=== PATIENT | male | born 1950 | race Caucasian/White ===

== ENCOUNTER 2024-06-13 16:54 | Inpatient (IN) | payer OTHER ==
[2024-06-13 17:48] LABS: Absolute Eosinophils 0.2 K/uL (0-0.5); Absolute Lymphocytes (CBC) 1.6 K/uL (0.7-4.9); Absolute Monocytes 0.7 K/uL (0.1-1.3); Absolute Neutrophil 5.6 K/uL (1.8-8.0); Basophils % 0.5 % (0-1.3); Eosinophils % 2.2 % (0-4.4); Hematocrit 36.9 % (39.6-49.0); Hemoglobin 12.6 g/dL (13.6-17.9); Lymphocytes % 19.7 % (15.3-44.8); MCH 30.2 pg (27.0-35.0); MCHC 34.2 g/dL (32.0-36.0); MCV 88.3 fL (80-100); MPV 6.9 fL (7.6-11.3); Monocytes % 8.4 % (3.3-12.3); Neutrophils % 69.2 % (41.7-73.7); Platelets 205 thou/uL (152-406); RBC Red Blood Cell Count 4.18 M/uL (4.33-5.43); Red Cell Distribution Width 13.7 % (12.1-15.2)
[2024-06-13 18:03] LABS: Influenza A Ag Negative; Influenza B Ag Negative; SARS-CoV-2 Antigen Rapid Res Negative (Negative)
[2024-06-13 18:07] LABS: Magnesium 2.1 mg/dL (1.6-2.4); Troponin High Sensitivity 11.8 pg/mL (<58.9)
--- NOTE | 2024-06-13 18:24 | RAD REPORT ---
EXAMINATION: ONE VIEW CHEST XR CLINICAL INDICATION: DYSPNEA TECHNIQUE: Frontal chest projection is submitted. Examination is limited by patient positioning and t echnique. COMPARISON: No prior exam. FINDINGS: Mild bilateral interstitial opacities likely pulmonary edema. The heart is mildly to moderately enlar ged. No displaced fractures identified. IMPRESSION: Mild CHF.
--- NOTE | 2024-06-13 19:22 | ER ---
Nurse's Notes [facility] Name: Zohaib Tirado Age: 73 yrs Sex: Male : 1950 Arrival Date: 06/13/2024 Time: 16:54 Bed 5 Private MD: Diagnosis: Acute pulmonary edema;Dyspnea Presentation: 06/13 17:22 Chief complaint: Patient states: SOB since last night, worse when he lies back. iw Coronavirus screen: Client presents with at least one sign or symptom that may indicate coronavirus-19. Ebola Screen: No symptoms or risks identified at this time. Initial Sepsis Screen: Does the patient meet any 2 criteria? Does the patient have a suspected source of infection? No. Patient's initial sepsis screen is negative. Risk Assessment: Do you want to hurt yourself or someone else? Patient reports no desire to harm self or others. Onset of symptoms was June 13, 2024. 17:22 Method Of Arrival: Ambulatory iw 17:22 Acuity: WILDER 3 iw Historical: - Allergies: 17:23 No Known Allergies; iw - PMHx: 17:23 Hypertensive disorder; Atrial fibrillation; colon cancer; iw - PSHx: 17:23 colon resection; Cholecystectomy; iw - Infectious Disease History:: Denies. - Social history:: Smoking status: Patient reports the use of cigarette tobacco products. Screenin:00 [facility] ED Fall Risk Assessment (Adult) History of falling in the last 3 months, jb4 including since admission No falls in past 3 months (0 pts) Confusion or Disorientation No (0 pts) Intoxicated or Sedated No (0 pts) Impaired Gait No (0 pts) Mobility Assist Device Used No (0 pt) Altered Elimination No (0 pt) Score/Fall Risk Level 0 - 2 = Low Risk Oriented to surroundings, Maintained a safe environment. Abuse screen: Denies threats or abuse. Nutritional screening: No deficits noted. Tuberculosis screening: No symptoms or risk factors identified. Assessment: 17:35 General: Appears in no apparent distress. comfortable, Behavior is calm, cooperative, jb4 appropriate for age. Pain: Denies pain. Neuro: Level of Consciousness is awake, alert, obeys commands, Oriented to person, place, time, situation. Cardiovascular: Patient's skin is warm and dry. Rhythm is irregular. Respiratory: Reports shortness of breath on exertion cough that is non-productive, persistent Airway is patent Respiratory effort is even, unlabored, Respiratory pattern is regular, symmetrical. Derm: Skin is intact, Skin is pink, warm \T\ dry. Musculoskeletal: Circulation, motion, and sensation intact. Range of motion: intact in all extremities. 18:09 Reassessment: Patient appears in no apparent distress at this time. Patient and/or jb4 family updated on plan of care and expected duration. Pain level reassessed. Patient is alert, oriented x 3, equal unlabored respirations, skin warm/dry/pink. 19:39 Reassessment: Patient appears in no apparent distress at this time. Patient and/or jb4 family updated on plan of care and expected duration. Pain level reassessed. Patient is alert, oriented x 3, equal unlabored respirations, skin warm/dry/pink. 20:30 Reassessment: Patient appears in no apparent distress at this time. Patient and/or jb4 family updated on plan of care and expected duration. Pain level reassessed. Patient is alert, oriented x 3, equal unlabored respirations, skin warm/dry/pink. 21:36 Reassessment: Patient appears in no apparent distress at this time. Patient and/or jb4 family updated on plan of care and expected duration. Pain level reassessed. Patient is alert, oriented x 3, equal unlabored respirations, skin warm/dry/pink. Vital Signs: 17:22 BP 156 / 110; Pulse 67; Resp 20; Temp 97.5; Pulse Ox 96% ; Weight 86.18 kg; Height 6 iw ft. 0 in. ; Pain 0/10; 18:26 BP 164 / 108; Pulse 98; Resp 20; Pulse Ox 96% on R/A; jb4 19:39 BP 171 / 114; Pulse 85; Resp 18; Pulse Ox 95% on R/A; jb4 20:04 BP 169 / 105; Pulse 91; Resp 22; Pulse Ox 92% on R/A; jb4 21:36 BP 162 / 108; Pulse 95; Resp 20; Pulse Ox 97% on R/A; jb4 17:22 Body Mass Index 25.77 (86.18 kg, 182.88 cm) iw 17:22 Pain Scale: Adult iw ED Course: 16:57 Patient arrived in ED. im 16:59 Mary Hsu FNP-C is PHCP. kb 16:59 Nicko Campbell MD is Attending Physician. kb 17:23 Triage completed. iw 17:24 Arm band placed on. iw 17:46 Initial lab(s) drawn, by me, sent to lab. Inserted saline lock: 20 gauge in right kb4 antecubital area, using aseptic technique. Blood collected. Flushed with 10 mL NS. 18:09 Graeme Rene, RN is Primary Nurse. jb4 18:19 XRAY Chest (1 view) In Process Unspecified. EDMS 19:21 Prince Harrison MD is Hospitalizing Provider. kb 21:30 No provider procedures requiring assistance completed. Patient admitted, IV remains in jb4 place. Administered Medications: 20:03 Drug: Furosemide IVP 40 mg IVP once; give over 2 minutes Route: IVP; Site: right jb4 antecubital; 21:36 Drug: carvedilol PO 25 mg PO once; administer with food Route: PO; jb4 21:50 Follow up: Response: Medication Administered at Departure jb4 Outcome: 19:21 Decision to Hospitalize by Provider. kb 21:30 Admitted to Tele accompanied by tech, via wheelchair, room 409, with chart, jb4 21:30 Condition: stable 21:30 Discharge instructions given to patient, family, Instructed on the need for admit, Demonstrated understanding of instructions, 21:44 Patient left the ED. vc1 Signatures: Dispatcher [employer] EDMS Mary Hsu, [employer] ANALYST-CkAntonia Avalos RN RN iw Graeme Rene RN RN jb4 Rosio Bolden RN RN vc1 Cindy Yu Kayla kb4 Corrections: (The following items were deleted from the chart) 17:24 17:23 PMHx: None; iw iw 17:25 17:22 Pulse 67bpm; Resp 20bpm; Pulse Ox 96%; Temp 97.5F; 86.18 kg; Height 6 ft. 0 in.; iw BMI: 25.7; Pain 0/10, Adult; iw 21:50 17:35 Cardiovascular: Patient's skin is warm and dry. jb4 jb4
--- NOTE | 2024-06-13 19:22 | EDPHYS ---
Physician Documentation [facility] Name: Zohaib Tirado Age: 73 yrs Sex: Male : 1950 Arrival Date: 06/13/2024 Time: 16:54 Bed 5 Private MD: ED Physician Nicko Campbell HPI: 06/13 17:16 This 73 yrs old Male presents to ER via Unassigned with complaints of Shortness Of kb Breath, Cough, Weakness. 17:16 Pt is a 73 year old male who presents for shortness of breath that started at 0400 this morning. States if he is standing up he can breath better. Sitting and laying make shortness of breath worse. Reports cough and congestion. States he has had issues over the last few weeks, but today is worse. states pt was recently seen by Pat because they think the shortness of breath is due to a heart issue rather than a lung issue. Denies chest pain. . Historical: - Allergies: 17:23 No Known Allergies; iw - PMHx: 17:23 Hypertensive disorder; Atrial fibrillation; colon cancer; iw - PSHx: 17:23 colon resection; Cholecystectomy; iw - Infectious Disease History:: Denies. - Social history:: Smoking status: Patient reports the use of cigarette tobacco products. ROS: 17:16 Constitutional: As per HPI kb Exam: 17:19 Constitutional: This is a well developed, well nourished patient who is awake, alert, kb and in no acute distress. Head/Face: Normocephalic, atraumatic. ENT: Moist Mucous membranes Cardiovascular: Regular rate Respiratory: Respirations even and unlabored. No increased work of breathing. Talking in full sentences Skin: Warm, dry with normal turgor. Normal color. MS/ Extremity: Pulses equal, no cyanosis. Neurovascular intact. Full, normal range of motion. Neuro: Awake and alert, GCS 15, oriented to person, place, time, and situation. 17:37 ECG was reviewed by the Attending Physician. Vital Signs: 17:22 BP 156 / 110; Pulse 67; Resp 20; Temp 97.5; Pulse Ox 96% ; Weight 86.18 kg; Height 6 iw ft. 0 in. ; Pain 0/10; 18:26 BP 164 / 108; Pulse 98; Resp 20; Pulse Ox 96% on R/A; jb4 19:39 BP 171 / 114; Pulse 85; Resp 18; Pulse Ox 95% on R/A; jb4 20:04 BP 169 / 105; Pulse 91; Resp 22; Pulse Ox 92% on R/A; jb4 21:36 BP 162 / 108; Pulse 95; Resp 20; Pulse Ox 97% on R/A; jb4 17:22 Body Mass Index 25.77 (86.18 kg, 182.88 cm) iw 17:22 Pain Scale: Adult iw MDM: 16:59 Medical Screening Exam initiated kb 17:20 Data reviewed: vital signs, nurses notes. Historians other than the Patient: abbie Spouse/Significant Other: . 19:00 Differential diagnosis: CHF exacerbation, pneumonia, pulmonary edema. kb 19:20 Consideration of Admission/Observation Patient was admitted/placed on observation. kb Escalation of care including admission/observation considered. Management of patient was discussed with the following: Hospitalist: Dr Wall accepts pt for admission. Counseling: I had a detailed discussion with the patient and/or guardian regarding the historical points, exam findings, and any diagnostic results supporting the discharge/admit diagnosis, lab results, radiology results, the need for further work-up and treatment in the hospital. ED course: Discussed admission vs outpatient treatment with pt and . They are not comfortable going home due to the shortness of breath so prefer to stay in the hospital. 06/13 17:14 Order name: COVID-19 Ag + Flu A+B Ag; Complete Time: 18:04 kb 06/13 17:18 Order name: Basic Metabolic Panel; Complete Time: 18:11 kb 06/13 17:18 Order name: CBC with Diff; Complete Time: 17:54 kb 06/13 17:18 Order name: Magnesium; Complete Time: 18:11 kb 06/13 17:18 Order name: NT PRO-BNP; Complete Time: 18:11 kb 06/13 17:18 Order name: Troponin HS; Complete Time: 18:11 kb 06/13 20:41 Order name: NT PRO-BNP EDMS 06/13 20:41 Order name: NT PRO-BNP EDMS 06/13 20:41 Order name: Troponin High Sensitivity EDMS 06/13 17:18 Order name: XRAY Chest (1 view); Complete Time: 18:30 kb 06/13 20:41 Order name: Echo with Doppler EDMS 06/13 17:18 Order name: Cardiac monitoring; Complete Time: 17:59 kb 06/13 17:18 Order name: EKG - Nurse/Tech; Complete Time: 17:59 kb 06/13 17:18 Order name: IV Saline Lock; Complete Time: 17:46 kb 06/13 17:18 Order name: Labs collected and sent; Complete Time: 17:58 kb 06/13 17:18 Order name: O2 Per Protocol; Complete Time: 17:46 kb 06/13 17:18 Order name: O2 Sat Monitoring; Complete Time: 17:46 kb EC:37 Rate is 95 beats/min. Rhythm is irregularly irregular. QRS [place] is Normal. QRS interval kb is normal at 106 msec. QT interval is normal at 427 msec. Administered Medications: 20:03 Drug: Furosemide IVP 40 mg IVP once; give over 2 minutes Route: IVP; Site: right jb4 antecubital; 21:36 Drug: carvedilol PO 25 mg PO once; administer with food Route: PO; [facility] 21:50 Follow up: Response: Medication Administered at Departure [facility] Disposition: 19:19 Co-signature as Attending Physician, Nicko Campbell MD I reviewed the patient's care rt provided by the Advanced Practice Provider and agree with the diagnosis and treatment plan. Disposition Summary: 06/13/24 19:21 Hospitalization Ordered Notes: Hospitalization Status: Observation Provider: Prince abbei Harrison Location: Telemetry/MedSurg (observation) kb Condition: Stable kb Problem: new kb Symptoms: are unchanged kb Bed/Room Type: Standard Room Assignment: [facility](06/13/24 20:52) [facility] Diagnosis - Acute pulmonary edema kb - Dyspnea kb Forms: - Medication Reconciliation Form kb - SBAR form kb - Leadership Thank You Letter kb Signatures: Dispatcher [employer] [facility] Mary Hsu FNP-C FNP-Antonia Avila RN RN iw Bryson, James, RN RN [facility] Nicko Campbell MD MD Ange Yan [facility] Corrections: (The following items were deleted from the chart) 17:19 17:19 Chest Single View+RAD.RAD.BRZ ordered. [facility] EDWV 17:21 17:16 Pt is a 73 year old male who presents for shortness of breath that started at kb 0400 this morning. States if he is standing up he can breath better. Sitting and laying make shortness of breath worse. Reports cough and congestion. States he has had issues over the last few weeks, but today is worse. . kb 17:24 17:23 PMHx: None; iw iw 17:26 17:16 Pt is a 73 year old male who presents for shortness of breath that started at kb 0400 this morning. States if he is standing up he can breath better. Sitting and laying make shortness of breath worse. Reports cough and congestion. States he has had issues over the last few weeks, but today is worse. states pt was recently seen by Pat because they think the shortness of breath is due to a heart issue rather than a lung issue. kb 20:52 19:21 kb kmf
[2024-06-13] MEDS ORDERED: FUROSEMIDE 40 MG/4 ML VIAL ONE (20:00)
[2024-06-13] MEDS: FUROSEMIDE 40 MG/4 ML VIAL IV SCH (20:36)
[2024-06-13] MEDS ORDERED: ALBUTEROL 2.5 MG/3 ML NEB SOL NEB PRN (20:36)
[2024-06-13] MEDS ORDERED: IPRATROPIUM BROM 0.5MG/2.5ML NEB PRN (20:36)
[2024-06-13] MEDS ORDERED: ONDANSETRON 4 MG/2 ML VIAL IV PRN (20:36)
--- NOTE | 2024-06-13 20:44 | P.HP ---
Certification for Inpatient Patient admitted to: Inpatient With expected LOS: >2 Midnights Practitioner: I am a practitioner with admitting privileges, knowledge of patient current condition, hospital course, and medical plan of care. Services: Services provided to patient in accordance with Admission requirements found in Title 42 Section 412.3 of the Code of Federal Regulations Patient History Date of Service: 06/13/24 Reason for admission: Shortness of breath History of Present Illness: Patient is a 73-year-old male with a past medical history of atrial fibrillation. He is being admitted for new onset CHF. Patient has been experiencing dyspnea on exertion. He has evidence of pulmonary edema. Patient is known to cardiology and they are in the process of working him up extensively. He is reporting orthopnea, dyspnea on exertion and even with sitting. He is known to Dr. Stewart. He has multiple test scheduled for this month to determine etiology of his shortness of breath. Physical Examination - Physical Exam General: Acute distress HEENT: Atraumatic, Normocephalic Respiratory: Diminished Cardiovascular: No edema, Normal pulses, Normal S1 S2, Irregular heart rate/rhythm Neurological: Normal speech - Studies Laboratory Data (last 24 hrs) 06/13/24 06/13/24 17:42 17:42 WBC 8.10 Hgb 12.6 L Hct 36.9 L Plt Count 205 Sodium 129 L Potassium 4.0 BUN 18 Creatinine 1.26 Glucose 126 H Magnesium 2.1 Assessment and Plan - Problems (Diagnosis) (1) Decompensated heart failure Current Visit: Yes Status: Acute (2) Atrial fibrillation Current Visit: Yes Status: Acute - Plan Assessment This is a 73-year-old male who is being admitted for new onset CHF after he presented with shortness of breath, dyspnea on exertion. Patient has a BNP more than 2700. He is on room air. cardiac monitor technician reveals evidence of atrial fibrillation. New onset CHF Pulmonary edema Atrial fibrillation Plan: Will admit inpatient with telemetry Continue scheduled IV diuresis 2D echo ordered Monitor ins and outs Will also benefit from cardiology consult Resume rest of home medications upon reconciliation - Advance Directives Does patient have a Living Will: No Does patient have a Durable POA for Healthcare: No
[2024-06-13] MEDS: carvediloL 25 MG TAB ONE (21:24)
[2024-06-13 22:03] VITALS: BMI 24.4
[2024-06-14 06:41] LABS: Troponin High Sensitivity 15.2 pg/mL (<58.9)
[2024-06-14] MEDS: ENOXAPARIN 40 MG/0.4 ML SQ SCH (08:51)
--- NOTE | 2024-06-14 10:53 | P.CNS ---
Date of Consult: 06/14/24 Chief Complaint: Shortness of breath History of Present Illness: Patient with PMH of atrial fibrillation, presented with worsening SOB and WANG, denies chest pain, no palpitations, no syncope. Allergies No Known Allergies Allergy (Unverified 06/13/24 20:51) Home medications list reviewed: Yes Home Medications: Amiodarone HCl [Cordarone*] 1 tab PO BID 06/14/24 Amlodipine Besylate [Norvasc] 1 tab PO DAILY 06/14/24 Apixaban [Eliquis] 1 tab PO BID 06/14/24 Carvedilol [Coreg] 1 tab PO BID 06/14/24 Ezetimibe [Zetia*] 1 tab PO DAILY 06/14/24 Pravastatin [Pravachol*] 1 tab PO DAILY 06/14/24 - Past Medical/Surgical History Diabetic: No -: HTN -: afib -: colon cancer -: colon resection - Social History Place of Residence: Home Review of Systems 10-point ROS is otherwise unremarkable Physical Examination Temp Pulse Resp BP Pulse Ox 98.0 F 79 17 156/77 H 94 06/14/24 08:00 06/14/24 08:51 06/14/24 04:00 06/14/24 08:51 06/14/24 08:00 General: Alert, In no apparent distress HEENT: Atraumatic, PERRLA, Mucous membr. moist/pink, EOMI, Sclerae nonicteric Neck: Supple, 2+ carotid pulse no bruit, No LAD, Without JVD or thyroid abnormality Respiratory: Clear to auscultation bilaterally, Normal air movement Cardiovascular: Regular rate/rhythm, Normal S1 S2 Gastrointestinal: Normal bowel sounds, No tenderness Musculoskeletal: No tenderness Integumentary: No rashes Neurological: Normal gait, Normal speech, Normal tone, Normal affect Lymphatics: No axilla or inguinal lymphadenopathy Laboratory Data (last 24 hrs) 06/13/24 06/13/24 17:42 17:42 WBC 8.10 Hgb 12.6 L Hct 36.9 L Plt Count 205 Sodium 129 L Potassium 4.0 BUN 18 Creatinine 1.26 Glucose 126 H Magnesium 2.1 - Problems (1) Atrial fibrillation Current Visit: Yes Status: Acute Plan: continue amiodarone 200 mg po BID Continue Eliquis 5 mg po BID (2) Decompensated heart failure Current Visit: Yes Status: Acute Plan: re start patient on Coreg 12.5 mg po BID Add Entresto 24 mg po BID Add Aldactone 25 mg daily continue lasix 40 mg IV BID Monitor input and output and electrolytes. Echo pending
--- NOTE | 2024-06-14 12:05 | EKG ---
Test Date: 2024-06-13 Test Time: 17:30:39 Prepress Technician: LASHAWN MEASUREMENT RESULTS: Intervals: Rate: 95 MI: QRSD: 106 QT: 340 QTc: 427 [place]: P: MI: QRS: 42 T: 107 INTERPRETIVE STATEMENTS: Atrial fibrillation Abnormal ECG No previous ECG available for comparison Electronically Signed On 06-14-24 12:02:51 OCCUPATIONAL PSYCHOLOGIST by Avel Jenkins
--- NOTE | 2024-06-14 12:55 | ECHO ---
HEIGHT: 6 ft 0 in WEIGHT: 190 lb 0 oz DATE OF STUDY: 06/14/[address]: Prince Curtis Harrison MD 2-DIMENSIONAL: YES M.MODE: YES DOPPLER: YES COLOR FLOW: YES TDS: PORTABLE: YES DEFINITY: BUBBLE STUDY: DIAGNOSIS: DECOMPENSATED CONGESTIVE HEART FAILURE CARDIAC HISTORY: CATHERIZATION: YES SURGERY: NO PROSTHETIC VALVE: NO PACEMAKER: NO MEASUREMENTS (cm) DIASTOLIC (NORMALS) SYSTOLIC (NORMALS) IVSd 1.3 (0.6-1.2) LA Diam 2.6 (1.9-4.0) LVEF 40-45% LVIDd 4.4 (3.5-5.7) LVIDs 3.9 (2.0-3.5) %FS LVPWd 1.3 (0.6-1.2) Ao Diam 3.5 (2.0-3.7) 2 DIMENSIONAL ASSESSMENT: RIGHT ATRIUM: NORMAL LEFT ATRIUM: MODERATELY DILATED RIGHT VENTRICLE: NORMAL LEFT VENTRICLE: NORMAL TRICUSPID VALVE: TRACE TRICUSPID REGURGITATION MITRAL VALVE: MILD MITRAL REGURGITATION PULMONIC VALVE: NORMAL AORTIC VALVE: CALCIFIED, NO AORTIC STENOSIS PERICARDIAL EFFUSION: NONE AORTIC ROOT: NORMAL LEFT VENTRICULAR WALL MOTION: MILD GLOBAL HYPOKINESIS DOPPLER/COLOR FLOW: DIASTOLIC DYSFUNCTION COMMENTS: 1. MILDLY REDUCED LEFT VENTRICULAR SYSTOLIC FUNCTION, EJECTION FRACTION 40-45%, MILD GLOBAL HYPOKINESIS 2. DIASTOLIC DYSFUNCTION 3. NORMAL FILLING PRESSURE (RIGHT ATRIAL PRESSURE 0-5 mmHg) TECHNOLOGIST: SERGEI ZAVALA
--- NOTE | 2024-06-14 14:05 | RAD REPORT ---
EXAMINATION: US CAROTID DUPLEX CLINICAL INDICATION: , 73 years old. Syncope. TECHNIQUE: Real-time grayscale, color flow and spectral Doppler sonographic images were obtained of t extracranial carotid system using a linear transducer. [id number]. COMPARISON: No prior exam. FINDINGS: RIGHT: Common carotid artery: 81 cm/s Internal carotid artery: 113 cm/s External carotid artery: 109 cm/s Right ICA/CCA ratio: 1.4 Plaque Moderate Calcified and noncalcified Vertebral artery Antegrade LEFT: Common carotid artery: 85 cm/s Internal carotid artery: 118 cm/s External carotid artery: 135 cm/s lEFT ICA/CCA ratio: 1.4 Plaque Moderate Calcified and noncalcified Vertebral artery Antegrade IMPRESSION: No hemodynamically significant stenosis (greater than 50%) within the extracranial internal carotid a [facility].
[2024-06-15] MEDS: carvediloL 25 MG TAB PO SCH ×2 (09:25→16:12)
[2024-06-15] MEDS: AMIODARONE HCL 200 MG TAB PO SCH (09:25)
[2024-06-15] MEDS: APIXABAN 5 MG TABLET PO SCH (09:26)
[2024-06-15] MEDS ORDERED: LIDOCAINE 1% 20 ML MDV ONE (09:30)
[2024-06-15] MEDS ORDERED: MIDAZOLAM HCL 2 MG/2 ML INJ ONE (09:30)
[2024-06-15] MEDS ORDERED: ATROPINE SULF 1 MG/10 ML SYR IV ONE (09:30)
[2024-06-15] MEDS ORDERED: NITROGLYCERIN/D5W 50 MG/250 ML BTL IV ONE (09:30)
[2024-06-15] MEDS ORDERED: HEPA 1000U/500MLS 2,000 UNIT/1,000 ML BAG IV ONE (09:30)
[2024-06-15] MEDS ORDERED: HEPARIN 10,000 UNIT/10 ML VIAL IV ONE (09:30)
[2024-06-15] MEDS ORDERED: TICAGRELOR 90 MG TABLET PO ONE (09:31)
[2024-06-15] MEDS ORDERED: ASPIRIN 325 MG TAB ONE (09:31)
[2024-06-15] MEDS ORDERED: CLOPIDOGREL 75 MG TABLET ONE (09:31)
[2024-06-15] MEDS ORDERED: HEPARIN 5000 UNIT/ML 1 ML VIAL ONE (09:31)
[2024-06-15] MEDS ORDERED: NALOXONE 0.4 MG/ML VIAL ONE (09:32)
[2024-06-15] MEDS ORDERED: FLUMAZENIL 0.1 MG/ML (5 mL VIAL) IV ONE (09:32)
[2024-06-15] MEDS ORDERED: FENTANYL CITR 100 MCG/2 ML ONE (09:32)
[2024-06-15] MEDS: SACUBITRIL/VALSARTAN 24/26 MG TAB PO SCH (09:56)
[2024-06-15] MEDS ORDERED: NA CHLORIDE 0.9% 500 ML ONE (10:04)
--- NOTE | 2024-06-15 11:18 | P.PN ---
Subjective Date of Service: 06/15/24 Chief Complaint: Shortness of breath Subjective: No new changes, No C/O voiced, Tolerating diet, Ambulating, Improving Review of Systems 10-point ROS is otherwise unremarkable Physical Examination - Vital Signs Temperature: 97.6 F Blood Pressure: 153/90 Pulse: 84 Respirations: 18 Pulse Ox (%): 94 - Physical Exam General: Alert, In no apparent distress HEENT: Atraumatic, PERRLA, EOMI Neck: Supple, JVD not distended Respiratory: Clear to auscultation bilaterally, Normal air movement Cardiovascular: Irregular heart rate/rhythm Gastrointestinal: Normal bowel sounds, No tenderness Musculoskeletal: No tenderness Integumentary: No rashes Neurological: Normal speech, Normal tone, Normal affect Lymphatics: No axilla or inguinal lymphadenopathy - Studies Medications List Reviewed: Yes Assessment And Plan - Current Problems (Diagnosis) (1) Atrial fibrillation Current Visit: Yes Status: Acute Plan: continue amiodarone 200 mg po BID Continue Eliquis 5 mg po BID Patient is rate controlled, ADOLFO Probe is down so DCCV is not possible, will continue medical treatment at this time. (2) Decompensated heart failure Current Visit: Yes Status: Acute Plan: re start patient on Coreg 12.5 mg po BID Add Entresto 24 mg po BID Add Aldactone 25 mg daily continue lasix 40 mg IV BID Monitor input and output and electrolytes. Echo shows mild reduced LV systolic function, DD. (3) CAD (coronary artery disease) Current Visit: Yes Status: Acute Plan: Patient coronary angiogram done today shows significant multivessel complex CAD ASA 81 mg daily Lipitor 40 mg daily add Jardiance 10 mg daily on discharge outpatient follow up with CT surgery and cardiology.
[2024-06-15 11:39] LABS: Absolute Eosinophils 0.2 K/uL (0-0.5); Absolute Lymphocytes (CBC) 1.3 K/uL (0.7-4.9); Absolute Monocytes 0.6 K/uL (0.1-1.3); Absolute Neutrophil 4.4 K/uL (1.8-8.0); Basophils % 0.3 % (0-1.3); Eosinophils % 2.5 % (0-4.4); Hematocrit 40.5 % (39.6-49.0); Hemoglobin 13.9 g/dL (13.6-17.9); Lymphocytes % 19.7 % (15.3-44.8); MCHC 34.3 g/dL (32.0-36.0); MCV 87.4 fL (80-100); MPV 7.2 fL (7.6-11.3); Monocytes % 9.6 % (3.3-12.3); Neutrophils % 67.9 % (41.7-73.7); Platelets 254 thou/uL (152-406); RBC Red Blood Cell Count 4.63 M/uL (4.33-5.43); Red Cell Distribution Width 14.1 % (12.1-15.2)
[2024-06-15 11:45] LABS: Albumin 3.6 g/dL (3.4-5.0); Albumin/Globulin Ratio 0.9 (1.1-1.8); Anion Gap 11.4 mEq/L (5.0-15.0); Bilirubin Total 0.8 mg/dL (0.2-1.0); Globulin 4.1 g/dL (2.3-3.5); Magnesium 2.1 mg/dL (1.6-2.4); Potassium 3.4 mEq/L (3.5-5.1); Protein, Total 7.7 g/dL (6.4-8.2)
[2024-06-15 12:43] VITALS: O2SAT 98
--- NOTE | 2024-06-15 13:40 | OP ---
Date of Procedure: 06/15/2024 Surgeon: Avel Jenkins Procedure Performed: Selective coronary angiogram. Indication For Procedure: Acute systolic heart failure. Complications: None. Estimated Blood Loss: Less than 50 cc. Access: Right radial, closed by TR band. Sedation Time: 20 minutes with 1 of Versed and 50 of fentanyl. Description Of Procedure: After risks, and benefits, and alternatives were explained to patient, pat ient agreed to proceed with procedure and signed informed consent. The patient was brought back to [facility] pit laborer, prepped and draped in sterile fashion. Time-out was performed. Sedation was administer ed. Next, right radial access was obtained using an ultrasound-guided micropuncture technique. Tige r 4.0 catheter was advanced over a J-wire to the aortic root. Selective angiogram was done using the same catheter. At the end of procedure, catheter was removed over a J-wire. Sheath was removed. T R band was applied. Hemostasis was achieved, and the patient was moved back to Recovery in stable co ndition. Findings: 1. Left main normal. 2. LAD; heavy calcified, tortuous arteries with a proximal diffuse 70% to 80% disease, before it take s a 90 degree turn and mid mild luminal irregularities and then mid to distal, there is an 80% focal lesion, but that is very tortuous with diffuse disease artery distally. 3. Left circ; proximal mild luminal irregularities, gives a large OM1 right after it takes a 90 degre e bend. There is an 80% to 90% disease from the left circ into the OM1 before the mid OM1 stent that is patent. Then in the distal circ, distal OM got 60% disease. 4. RCA; proximal 100% occluded, BRANCH SERVICE LEADER, with left to right collaterals from the circ into the RPDA and R PLB. 5. Left subclavian artery/ANDRES is patent. Assessment And Plan: Significant proximal LAD disease that is probably fixable by high-risk PCI. Al so significant left circumflex into OM disease that is also probably fixable by PCI. RCA [employer]CH SERVICE LEADER that is with [id number] collaterals with mid to distal LAD disease that is need to be left for medical ma nagement due to severe tortuosity and severe diffuse artery disease. The plan is to consult CT Surgery as an outpatient for a bypass. If bypass is not an option, then co nsider high-risk PCI of the proximal LAD and left circ into OM1. Meanwhile, continue medical treatme nt. ORLIN/DELMIS Voice ID: [id number] Report ID: [id number]
[2024-06-15] MEDS ORDERED: ALBUTEROL 2.5 MG/3 ML NEB SOL NEB PRN (15:50)
[2024-06-15] MEDS: SODIUM CHLORIDE 1 GM TAB PO SCH (16:12)
[2024-06-15 16:13] VITALS: BP 146/89
[2024-06-15 16:29] VITALS: TEMP 97.9
[2024-06-15] MEDS ORDERED: SACUBITRIL/VALSARTAN 24/26 MG TAB PO SCH (21:00)
[2024-06-15] MEDS ORDERED: SPIRONOLACTONE 25 MG TABLET PO SCH (21:00)
[2024-06-15] MEDS ORDERED: ATORVASTATIN 10 MG TAB PO SCH (21:00)
== END 2024-06-15 18:42 | disposition home or self-care (01) | DRG 286 ==
LOC: ER 16:54 → 4TH 20:36
PROVIDERS: ADMIT Internal Medicine; ATTEND Hospitalist
PROC: 4A023N7 Measurement of Cardiac Sampling and Pressure, Left Heart, Percutaneous Approach (ICD-10-PCS; principal; 2024-06-15)
PROC: B2111ZZ Fluoroscopy of Multiple Coronary Arteries using Low Osmolar Contrast (ICD-10-PCS; 2024-06-15)
DX: I11.0 Hypertensive heart disease with heart failure (principal); I50.21 Acute systolic (congestive) heart failure; I48.91 Unspecified atrial fibrillation; I25.10 Atherosclerotic heart disease of native coronary artery without angina pectoris; F17.210 Nicotine dependence, cigarettes, uncomplicated; Z79.01 Long term (current) use of anticoagulants; Z90.49 Acquired absence of other specified parts of digestive tract; Z79.899 Other long term (current) drug therapy; Z85.038 Personal history of other malignant neoplasm of large intestine
CPT/HCPCS: 36415; 71045; 76937; 80048; 80053; 82947; 83735; 83880; 84484; 85025; 87428; 93005; 93306; 93454; 93880; 96374; 97161; 99152; 99153; 99285; C1893; J0461; J1644; J1650; J1940; J2003; J2250; J2310; J3010; J7040; Q9966

== ENCOUNTER 2024-08-11 11:32 | Inpatient (IN) | payer OTHER ==
[2024-08-11] MEDS ORDERED: ONDANSETRON 4 MG/2 ML VIAL ONE (12:36)
[2024-08-11] MEDS ORDERED: NA CHLORIDE 0.9% 1,000 ML ONE ×2 (12:37→16:57)
--- NOTE | 2024-08-11 13:05 | RAD REPORT ---
EXAMINATION: ONE VIEW CHEST XR CLINICAL INDICATION: COUGH TECHNIQUE: Frontal chest projection is submitted. Examination is limited by patient positioning and t echnique. COMPARISON: 06/13/2024 FINDINGS: Mild bilateral pulmonary edema is suspected. Small left pleural effusion. The heart is mildly to mode rately enlarged. Sternotomy wires present. IMPRESSION: Mild CHF versus volume overload pattern is suspected. Small left pleural effusion.
[2024-08-11 13:47] LABS: Absolute Eosinophils 0.1 K/uL (0-0.5); Absolute Lymphocytes (CBC) 1.3 K/uL (0.7-4.9); Absolute Monocytes 0.5 K/uL (0.1-1.3); Basophils % 0.4 % (0-1.3); Hematocrit 36.7 % (39.6-49.0); Hemoglobin 12.7 g/dL (13.6-17.9); Lymphocytes % 16.7 % (15.3-44.8); MCH 30.1 pg (27.0-35.0); MCHC 34.7 g/dL (32.0-36.0); MCV 86.8 fL (80-100); MPV 6.1 fL (7.6-11.3); Monocytes % 6.4 % (3.3-12.3); Neutrophils % 75.5 % (41.7-73.7); Nucleated Red Blood Cells % 0.1 % (0-0); Platelets 304 thou/uL (152-406); RBC Red Blood Cell Count 4.23 M/uL (4.33-5.43); Red Cell Distribution Width 16.5 % (12.1-15.2)
[2024-08-11 13:52] LABS: PT Prothrombin Time 13.5 SECONDS (10-13.0); Protime INR 1.19
[2024-08-11 14:11] LABS: Influenza A Ag Negative; Influenza B Ag Negative; SARS-CoV-2 Antigen Rapid Res Negative (Negative)
[2024-08-11 14:48] LABS: Albumin 3.8 g/dL (3.4-5.0); Albumin/Globulin Ratio 0.7 (1.1-1.8); Anion Gap 13.9 mEq/L (5.0-15.0); Bilirubin Direct 0.3 mg/dL (0-0.2); Bilirubin Indirect, Calculated 0.5 mg/dL (0.2-0.8); Bilirubin Total 0.8 mg/dL (0.2-1.0); Globulin 5.1 g/dL (2.3-3.5); Potassium 3.9 mEq/L (3.5-5.1); Protein, Total 8.9 g/dL (6.4-8.2); Troponin High Sensitivity 17.6 pg/mL (<58.9)
--- NOTE | 2024-08-11 16:46 | EDPHYS ---
Physician Documentation [facility] Name: Zohaib Tirado Age: 73 yrs Sex: Male : 1950 Arrival Date: 08/11/2024 Time: 11:32 Bed 4 Private MD: JEYSON Physician Edgar Nguyen HPI: 08/11 16:37 This 73 yrs old Male presents to ER via Ambulatory with complaints of tess Breathing Difficulty, Vomiting. 16:37 The patient has shortness of breath at rest. Onset: The symptoms/episode began/occurred tess 2 day(s) ago. 16:37 The patient's shortness of breath is aggravated by walking. The patient presents with tess abdominal pain in the upper abdomen, in the lower abdomen, abdominal distention in the upper abdomen, in the lower abdomen. The patient presents to the emergency department with nausea, that is mild, vomiting, that is intermittent. Possible causes: unknown, bad food exposure, sick contacts. NAUSEA, VOMITING, ABD PAIN. Associated signs and symptoms: Pertinent positives: non-productive cough, nausea, vomiting. Severity of symptoms: At their worst the symptoms were moderate in the emergency department the symptoms are unchanged. Associated signs and symptoms: Pertinent positives: abdominal pain, nausea, vomiting. Modifying factors: The symptoms are alleviated by food, remaining still, the symptoms are aggravated by food, movement. Historical: - Allergies: 11:44 No Known Allergies; ll1 - PMHx: 11:44 Atrial fibrillation; colon cancer; Hypertensive disorder; ll1 - PSHx: 11:44 Cholecystectomy; colon resection; ll1 - Immunization history:: Adult Immunizations up to date. - Social history:: Smoking status: Patient denies any tobacco usage or history of. - Family history:: not pertinent. ROS: 16:37 Constitutional: Negative for fever, chills, and weight loss, Eyes: Negative for injury, tess pain, redness, and discharge, ENT: Negative for injury, pain, and discharge, Neck: Negative for injury, pain, and swelling, Cardiovascular: Negative for chest pain, palpitations, and edema, Respiratory: Negative for shortness of breath, cough, wheezing, and pleuritic chest pain, Back: Negative for injury and pain, : Negative for injury, bleeding, discharge, and swelling, MS/Extremity: Negative for injury and deformity, Skin: Negative for injury, rash, and discoloration, Neuro: Negative for headache, weakness, numbness, tingling, and seizure, Psych: Negative for depression, anxiety, suicide ideation, homicidal ideation, and hallucinations, Allergy/Immunology: Negative for hives, rash, and allergies, Endocrine: Negative for neck swelling, polydipsia, polyuria, polyphagia, and marked weight changes, Hematologic/Lymphatic: Negative for swollen nodes, abnormal bleeding, and unusual bruising, 16:37 Abdomen/GI: Positive for abdominal pain, nausea and vomiting, abdominal distension, Exam: 16:37 Constitutional: This is a well developed, well nourished patient who is awake, alert, tess and in no acute distress. Head/Face: Normocephalic, atraumatic. Eyes: Pupils equal round and reactive to light, extra-ocular motions intact. Lids and lashes normal. Conjunctiva and sclera are non-icteric and not injected. Cornea within normal limits. Periorbital areas with no swelling, redness, or edema. ENT: Nares patent. No nasal discharge, no septal abnormalities noted. Tympanic membranes are normal and external auditory canals are clear. Oropharynx with no redness, swelling, or masses, exudates, or evidence of obstruction, uvula midline. Mucous membranes moist. Neck: Trachea midline, no thyromegaly or masses palpated, and no cervical lymphadenopathy. Supple, full range of motion without nuchal rigidity, or vertebral point tenderness. No Meningismus. Chest/axilla: Normal chest wall appearance and motion. Nontender with no deformity. No lesions are appreciated. Cardiovascular: Regular rate and rhythm with a normal S1 and S2. No gallops, murmurs, or rubs. Normal PMI, no JVD. No pulse deficits. Respiratory: Lungs have equal breath sounds bilaterally, clear to auscultation and percussion. No rales, rhonchi or wheezes noted. No increased work of breathing, no retractions or nasal flaring. Back: No spinal tenderness. No costovertebral tenderness. Full range of motion. Male : Normal genitalia with no discharge or lesions. Skin: Warm, dry with normal turgor. Normal color with no rashes, no lesions, and no evidence of cellulitis. MS/ Extremity: Pulses equal, no cyanosis. Neurovascular intact. Full, normal range of motion., bilateral aka Neuro: Awake and alert, GCS 15, oriented to person, place, time, and situation. Cranial nerves II-XII grossly intact. Motor strength 5/5 in all extremities. Sensory grossly intact. Cerebellar exam normal. Normal gait. Psych: Awake, alert, with orientation to person, place and time. Behavior, mood, and affect are within normal limits. 16:37 Abdomen/GI: Inspection: distension, that is mild, Bowel sounds: normal, Palpation: soft, Liver: no appreciated palpable abnormalities, Hernia: noted in the paraumbilical area, incarceration, is not appreciated, tenderness, is not appreciated, Vital Signs: 11:58 BP 124 / 84; Pulse 87; Resp 20; Temp 97.7; Weight 83.01 kg; Height 5 ft. 11 in. ; Pain ll1 0/10; 13:00 BP 141 / 96; Pulse 93; Resp 16; Pulse Ox 100% on R/A; db 14:00 BP 173 / 89; Pulse 80; Resp 16; Pulse Ox 100% on R/A; db 16:00 BP 126 / 79; Pulse 82; Resp 16; Pulse Ox 100% on R/A; db 17:00 BP 131 / 77; Pulse 85; Resp 16; Pulse Ox 99% on R/A; db 18:27 BP 152 / 90; Pulse 86; Resp 16; Pulse Ox 98% on R/A; db 19:00 BP 141 / 81; Pulse 87; Resp 16; Pulse Ox 96% ; al5 19:30 BP 121 / 77; Pulse 87; Resp 16; Pulse Ox 96% ; al5 20:00 BP 132 / 85; Pulse 85; Resp 16; Pulse Ox 96% ; al5 21:00 BP 120 / 71; Pulse 87; Resp 16; Pulse Ox 95% ; al5 11:58 Body Mass Index 25.52 (83.01 kg, 180.34 cm) ll1 11:58 Pain Scale: Adult ll1 MDM: 11:34 Medical Screening Exam initiated tess 11:51 Medical Screening Exam initiated tess 16:43 Differential diagnosis: Anemia Anxiety Reaction Nonspecific abd pain, gastritis, tess cholecystitis, pancreatitis, appendicitis, diverticulitis, viral gastroenteritis, gastroenteritis, Myocardial Infarction pneumonia, reactive airway disease, Unstable Angina acute coronary syndrome, appendicitis, bowel obstruction, cholecystitis, Cholelithiasis, diverticulitis, gastritis, Hepatitis, Mesenteric ischemia or infarction, non-specific abd pain, pancreatitis, Peptic Ulcer Disease, Ureterolithiasis, urinary tract infection. Antibiotic administration: Not indicated. Differential Diagnosis altered mental status, sepsis, flu. Immunization status: Pneumococcal vaccine: within last 5 years. Influenza vaccine: within last 5 years. Data reviewed: vital signs, nurses notes, lab test result(s), EKG, radiologic studies, CT scan, plain films. Consideration of Admission/Observation Patient was admitted/placed on observation. Escalation of care including admission/observation considered. I considered the following discharge prescriptions or medication management in the emergency department Medications were administered in the Emergency Department. See MAR. Independent interpretation of the following test(s) in the Emergency Department EKG: See my EKG interpretation above. Test considered but Not performed: Ultrasound NO ABD USG. 08/11 11:37 Order name: Basic Metabolic Panel; Complete Time: 16:33 tess 08/11 11:37 Order name: CBC with Diff; Complete Time: 16:33 08/11 11:37 Order name: LFT's; Complete Time: 16:33 08/11 11:37 Order name: Magnesium; Complete Time: 16:33 08/11 11:37 Order name: NT PRO-BNP; Complete Time: 16:33 08/11 11:37 Order name: PT-INR; Complete Time: 16:33 08/11 11:37 Order name: Troponin HS; Complete Time: 16:33 08/11 11:37 Order name: Blood Culture Adult (2) 08/11 11:37 Order name: COVID-19 Ag + Flu A+B Ag; Complete Time: 16:33 08/11 11:37 Order name: Lipase; Complete Time: 16:33 08/11 16:35 Order name: Urine Sodium Random 08/11 16:35 Order name: Osmolality, Serum; Complete Time: 19:42 08/11 16:35 Order name: Urine Osmolality tess 08/11 19:29 Order name: CBC with Automated Diff [facility] 08/11 19:29 Order name: CBC with Automated Diff [facility]SD 08/11 19:29 Order name: Comprehensive Metabolic Panel [facility] 08/11 19:29 Order name: Comprehensive Metabolic Panel [facility] 08/11 19:29 Order name: Troponin High Sensitivity [facility] 08/11 19:29 Order name: Troponin High Sensitivity [facility] 08/11 19:30 Order name: NT PRO-BNP [facility] 08/11 19:43 Order name: Lactate w/ 2H reflex if indic. [facility] 08/11 11:37 Order name: XRAY Chest (1 view); Complete Time: 16:[address] [facility] 08/11 16:36 Order name: CT Chest Abdomen Pelvis W/O Contrast; Complete Time: 19:[address] [facility] 08/11 19:31 Order name: Echo with Doppler [facility] 08/11 19:29 Order name: CONS Physician Consult [facility] 08/11 19:36 Order name: CONS Physician Consult [facility] 08/11 11:37 Order name: Cardiac monitoring; Complete Time: 14:[address] [facility] 08/11 11:37 Order name: EKG - Nurse/Tech; Complete Time: 14:[address] [facility] 08/11 11:37 Order name: IV Saline Lock; Complete Time: 14:[address] [facility] 08/11 11:37 Order name: Labs collected and sent; Complete Time: 14:[address] [facility] 08/11 11:37 Order name: O2 Per Protocol; Complete Time: 12:[address] [facility] 08/11 11:37 Order name: O2 Sat Monitoring; Complete Time: 12:[address] [facility] Administered Medications: 13:45 Drug: NS 0.9% IV 1000 ml IV at 1000 ml once; to be given as a bolus over 60 minutes db Route: IV; Rate: 1000 ml; Site: right antecubital; 21:21 Follow up: Response: No adverse reaction; IV Status: Completed infusion; IV Intake: al5 1000ml 13:45 Drug: Ondansetron IVP 4 mg IVP once; over 2 minutes Route: IVP; Site: right antecubital; 21:21 Follow up: Response: No adverse reaction; Nausea is decreased al5 16:55 Drug: NS 0.9% IV 1000 ml IV at 100 ml/hr once Route: IV; Rate: 100 ml/hr; Site: right db antecubital; 21:21 Follow up: Response: No adverse reaction; IV Status: Infusion continued upon admission al5 16:55 Drug: Famotidine IVP 20 mg IVP once; dilute with 10 mL 0.9% NaCl; give over 2 minutes db Route: IVP; Site: right antecubital; 21:21 Follow up: Response: No adverse reaction al5 19:50 Drug: Rocephin IV 1 grams IV at per protocol once; Given slow IV push per pharmacy al5 instructions Route: IV; Rate: per protocol; Site: right antecubital; 19:58 Follow up: Response: No adverse reaction; IV Status: Completed infusion; IV Intake: [id number] 19:58 Drug: levofloxacin IVPB 500 mg 100 ml IVPB once over 60 mins Volume: 100 ml; Route: al5 IVPB; Infused Over: 60 mins; Site: right antecubital; 21:22 Follow up: Response: No adverse reaction; IV Status: Infusion continued upon admission al5 Disposition Summary: 08/11/24 16:45 Hospitalization Ordered Notes: Hospitalization Status: Inpatient Admission tess Provider: Jose Luis Guevara cha Condition: Fair tess Problem: new tess Symptoms: have improved tess Bed/Room Type: Standard tess Location: Telemetry/MedSurg (Inpatient)(08/11/24 21:20) Room Assignment: 411(08/11/24 21:32) vk Diagnosis - Weakness tess - Vomiting tess - Hypo-osmolality and hyponatremia tess - Unspecified kidney failure - CHRONIC tess - Pneumonia due to other specified bacteria tess - Pleural effusion, not elsewhere classified tess Forms: - Medication Reconciliation Form tess - SBAR form tess - Leadership Thank You Letter tess Signatures: Dispatcher [employer] Sunni Hua RN RN kl Anderson, Corey, MD MD cha Lewis, Lynsay RN RN ll1 Simin Tomas, STEFFI RN kb3 Abida Gamble, RN RN Gila Lopez Amanda, RN RN al5 Corrections: (The following items were deleted from the chart) 11:37 11:37 BASIC METABOLIC PANEL+C.LAB.BRZ ordered. EDMS EDMS 11:37 11:37 CBC+H.LAB.BRZ ordered. EDMS EDMS 11:37 11:37 HEPATIC FUNCTION+C.LAB.BRZ ordered. EDMS EDMS 11:37 11:37 MAGNESIUM+C.LAB.BRZ ordered. EDMS EDMS 11:37 11:37 PROBNP+C.LAB.BRZ ordered. EDMS EDMS 11:37 11:37 PROTIME (+INR)+COAG.LAB.BRZ ordered. EDMS EDMS 11:37 11:37 Troponin High Sensitivity+C.LAB.BRZ ordered. EDMS EDMS 11:37 11:37 BLOOD CULTURE*+BA.LAB.BRZ ordered. EDMS EDMS 11:37 11:37 COVID-19 Ag + Flu A+B Ag+I.LAB.BRZ ordered. EDMS EDMS 11:37 11:37 LIPASE+C.LAB.BRZ ordered. EDMS EDMS 11:38 11:38 Chest Single View+RAD.RAD.BRZ ordered. EDMS EDMS 16:36 16:36 URINE SODIUM RANDOM+CHEM UR.LAB.BRZ ordered. EDMS EDMS 16:36 16:36 OSMOLALITY, SERUM+SC.LAB.BRZ ordered. EDMS EDMS 16:36 16:36 Osmolality, Urine ordered. EDMS EDMS 20:38 16:45 Telemetry/MedSurg (Inpatient) tess kb3 20:38 16:45 tess kb3 21:20 20:38 [facility] ER HOLD kb3 kl 21:20 20:38 ERHOLD- kb3 kl 21:32 21:20 431 kl vk
--- NOTE | 2024-08-11 16:46 | ER ---
Nurse's Notes [facility] Name: Zohaib Tiardo Age: 73 yrs Sex: Male : 1950 Arrival Date: 08/11/2024 Time: 11:32 Bed 4 Private MD: Diagnosis: Weakness;Vomiting;Hypo-osmolality and hyponatremia;Unspecified kidney failure-CHRONIC;Pneumonia due to other specified bacteria;Pleural effusion, not elsewhere classified Presentation: 08/11 11:58 Chief complaint: Patient states: SOB for 2 weeks. N/V since last night, no known fever. ll1 Coronavirus screen: Client denies travel out of the [place] in the last 14 days. difficulty breathing, shortness of breath, Client presents with at least one sign or symptom that may indicate coronavirus-19. Standard/surgical mask placed on the client. Ebola Screen: Patient denies travel to an Ebola-affected area in the 21 days before illness onset. Initial Sepsis Screen: Does the patient meet any 2 criteria? No. Patient's initial sepsis screen is negative. Does the patient have a suspected source of infection? No. Patient's initial sepsis screen is negative. Risk Assessment: Do you want to hurt yourself or someone else? Patient reports no desire to harm self or others. Onset of symptoms was July 28, 2024. 11:58 Method Of Arrival: Ambulatory 1 11:58 Acuity: WILDER 3 ll1 Historical: - Allergies: 11:44 No Known Allergies; ll1 - PMHx: 11:44 Atrial fibrillation; colon cancer; Hypertensive disorder; ll1 - PSHx: 11:44 Cholecystectomy; colon resection; ll1 - Immunization history:: Adult Immunizations up to date. - Social history:: Smoking status: Patient denies any tobacco usage or history of. - Family history:: not pertinent. Screenin:12 [facility] ED Fall Risk Assessment (Adult) History of falling in the last 3 months, db including since admission No falls in past 3 months (0 pts) Confusion or Disorientation No (0 pts) Intoxicated or Sedated No (0 pts) Impaired Gait No (0 pts) Mobility Assist Device Used No (0 pt) Altered Elimination No (0 pt) Score/Fall Risk Level 0 - 2 = Low Risk Oriented to surroundings, Maintained a safe environment. Abuse screen: Denies threats or abuse. Denies injuries from another. Nutritional screening: No deficits noted. Tuberculosis screening: No symptoms or risk factors identified. Assessment: 13:15 Reassessment: Patient appears in no apparent distress at this time. Patient and/or db family updated on plan of care and expected duration. Pain level reassessed. Patient is alert, oriented x 3, equal unlabored respirations, skin warm/dry/pink. General: Appears in no apparent distress. comfortable, Behavior is calm, cooperative. Pain: Denies pain. Neuro: Level of Consciousness is awake, alert, obeys commands, Oriented to person, place, time, situation, Speech is normal, Facial symmetry appears normal, Reports dizziness. Cardiovascular: Rhythm is regular. Respiratory: Airway is patent Respiratory effort is even, unlabored, Respiratory pattern is regular, symmetrical, Breath sounds are clear. Vital Signs: 11:58 BP 124 / 84; Pulse 87; Resp 20; Temp 97.7; Weight 83.01 kg; Height 5 ft. 11 in. ; Pain ll1 0/10; 13:00 BP 141 / 96; Pulse 93; Resp 16; Pulse Ox 100% on R/A; db 14:00 BP 173 / 89; Pulse 80; Resp 16; Pulse Ox 100% on R/A; db 16:00 BP 126 / 79; Pulse 82; Resp 16; Pulse Ox 100% on R/A; db 17:00 BP 131 / 77; Pulse 85; Resp 16; Pulse Ox 99% on R/A; db 18:27 BP 152 / 90; Pulse 86; Resp 16; Pulse Ox 98% on R/A; db 19:00 BP 141 / 81; Pulse 87; Resp 16; Pulse Ox 96% ; al5 19:30 BP 121 / 77; Pulse 87; Resp 16; Pulse Ox 96% ; al5 20:00 BP 132 / 85; Pulse 85; Resp 16; Pulse Ox 96% ; al5 21:00 BP 120 / 71; Pulse 87; Resp 16; Pulse Ox 95% ; al5 11:58 Body Mass Index 25.52 (83.01 kg, 180.34 cm) ll1 11:58 Pain Scale: Adult ll1 ED Course: 11:33 Patient arrived in ED. im 11:34 Edgar Nguyen MD is Attending Physician. tess 11:44 Arm band placed on. ll1 12:00 Triage completed. ll1 12:00 Patient placed in an exam room, on a stretcher. ll1 12:02 Abida Gamble, RN is Primary Nurse. db 12:36 XRAY Chest (1 view) In Process Unspecified. EDMS 13:35 Initial lab(s) drawn, by me, sent to lab. Inserted saline lock: 20 gauge in right db antecubital area, using aseptic technique. Blood collected. Flushed with 10 mL NS. 14:12 Patient has correct armband on for positive identification. Bed in low position. Call db light in reach. Side rails up X 1. Client placed on continuous cardiac and pulse oximetry monitoring. NIBP monitoring applied. court recording monitor on. Pulse ox on. NIBP on. Warm blanket given. Pillow given. 16:45 Jose Luis Guevara is Hospitalizing Provider. [facility] 18:09 CT Chest Abdomen Pelvis W/O Contrast In Process Unspecified. EDMS 21:20 Provided Education on: need for admission. al5 21:20 No provider procedures requiring assistance completed. al5 23:03 Patient admitted, IV remains in place. intact, No redness/swelling at site. rg5 Administered Medications: 13:45 Drug: NS 0.9% IV 1000 ml IV at 1000 ml once; to be given as a bolus over 60 minutes db Route: IV; Rate: 1000 ml; Site: right antecubital; 21:21 Follow up: Response: No adverse reaction; IV Status: Completed infusion; IV Intake: al5 1000ml 13:45 Drug: Ondansetron IVP 4 mg IVP once; over 2 minutes Route: IVP; Site: right antecubital;db 21:21 Follow up: Response: No adverse reaction; Nausea is decreased al5 16:55 Drug: NS 0.9% IV 1000 ml IV at 100 ml/hr once Route: IV; Rate: 100 ml/hr; Site: right db antecubital; 21:21 Follow up: Response: No adverse reaction; IV Status: Infusion continued upon admission al5 16:55 Drug: Famotidine IVP 20 mg IVP once; dilute with 10 mL 0.9% NaCl; give over 2 minutes db Route: IVP; Site: right antecubital; 21:21 Follow up: Response: No adverse reaction al5 19:50 Drug: Rocephin IV 1 grams IV at per protocol once; Given slow IV push per pharmacy al5 instructions Route: IV; Rate: per protocol; Site: right antecubital; 19:58 Follow up: Response: No adverse reaction; IV Status: Completed infusion; IV Intake: [id number] 19:58 Drug: levofloxacin IVPB 500 mg 100 ml IVPB once over 60 mins Volume: 100 ml; Route: al5 IVPB; Infused Over: 60 mins; Site: right antecubital; 21:22 Follow up: Response: No adverse reaction; IV Status: Infusion continued upon admission al5 Medication: 14:13 VIS not applicable for this client. db Intake: 19:58 IV: 50ml; Total: 50ml. al5 21:21 IV: 1000ml; Total: 1050ml. al5 Outcome: 16:45 Decision to Hospitalize by Provider. tess 23:02 Admitted to Med/surg accompanied by tech, via wheelchair, rg5 23:02 Condition: stable 23:02 Instructed on the need for admit, 23:03 Patient left the ED. rg5 Signatures: Dispatcher [employer] EDEdgar Chavis MD MD cha Lewis, Lynsay, RN RN ll1 Abida Gamble, RN RN Cindy Clarke Rommel RN RN rg5 Stacie Krishna RN RN al5
[2024-08-11] MEDS ORDERED: FAMOTIDINE 20 MG/2 ML VIAL IV ONE (16:56)
--- NOTE | 2024-08-11 18:44 | RAD REPORT ---
EXAM: CT CHEST, ABDOMEN AND PELVIS WITHOUT CONTRAST CLINICAL INDICATION: ABDOMINAL DISTENTION TECHNIQUE: CT chest, abdomen and pelvis was performed without contrast, as per department protocol. A xial, sagittal and coronal reconstructions were obtained. One or more of the following dose reduction techniques were used: Automated exposure control, adjustment of the mA and/or kV according to patient size, and/or iterative reconstruction. Unless otherwise specified, incidental findings do not require dedicated imaging follow-up. Examination is limited by the lack of intravenous contrast material. COMPARISON: Recent plain radiograph FINDINGS: LUNGS: The lungs are mildly emphysematous. Patchy airspace opacity in the left lung base likely repre sents pneumonia. PLEURA: Small left pleural effusion is noted. MEDIASTINUM AND LYMPH NODES: No mediastinal mass or fluid collection. Normal size mediastinal, hilar, and axillary lymph nodes. OSSEOUS STRUCTURES AND CHEST WALL: Intact. LIVER: Normal in size and contour. No focal lesion or biliary dilatation. Cholecystectomy clips. PANCREAS: No mass, ductal dilation, or su-pancreatic fluid. SPLEEN: Normal size. No focal lesion. ADRENALS: Normal; no mass. KIDNEYS: Normal size and contour. No hydronephrosis. URINARY BLADDER: Normal contour. GASTROINTESTINAL TRACT: No bowel obstruction, free air, significant free fluid or abscess. Postsurg ical changes are present about the colon. Anterior abdominal wall laxity seen with small focal ventral hernia present. APPENDIX: Normal appendix. LYMPH NODES: No lymphadenopathy. MUSCULOSKELETAL: No acute or suspicious osseous abnormality. OTHER: Infrarenal abdominal aortic aneurysm is present measuring 5 cm. IMPRESSION: Patchy airspace opacity left lung base with small left pleural effusion most likely representing pneu monia. Follow-up imaging to document clearance recommended. 5 cm infrarenal abdominal aortic aneurysm, fusiform type. For management of fusiform aneurysmal abdominal aortas: Recommend follow-up every 6 months and recommend vascular consultation or continued care with a vascu lar specialist. Note: For AAA enlargement of > 0.5 cm in 6 months or > 1 cm in 1 year, recommend vascular consultat ion. References: J Am Rose Marie Radiol 2013; 10(10):789-794; J Vasc Surg. 2018; 67:2-77
[2024-08-11] MEDS ORDERED: ONDANSETRON 4 MG/2 ML VIAL IV PRN (19:24)
[2024-08-11] MEDS ORDERED: ACETAMINOPHEN 500 MG TAB PO PRN (19:24)
--- NOTE | 2024-08-11 19:32 | P.HP ---
Certification for Inpatient Patient admitted to: Inpatient With expected LOS: >2 Midnights Patient will require the following post-hospital care: None Practitioner: I am a practitioner with admitting privileges, knowledge of patient current condition, hospital course, and medical plan of care. Services: Services provided to patient in accordance with Admission requirements found in Title 42 Section 412.3 of the Code of Federal Regulations Patient History Date of Service: 08/11/24 Reason for admission: INTRACTABLE NAUSEA AND VOMITING History of Present Illness: Patient is a 73-year-old gentleman who came to the hospital with shortness of breath. Patient recently had a cardiac catheterization with multivessel disease and was transferred to [place] for coronary artery bypass grafting. Patient did well postoperatively and was in the hospital for 4-5 days. Patient was discharged home with follow-up with CT surgery as well as Cardiology. Currently patient is doing well. Patient was presenting with shortness of breath and was diuresed. Patient will get an echocardiogram as well as Cardiology consultation. Patient will be admitted for inpatient hospitalization. Allergies No Known Allergies Allergy (Unverified 06/13/24 20:51) Home Medications: Aspirin [Aspirin EC 81 MG] 1 tab PO DAILY 08/12/24 Atorvastatin Calcium 40 mg PO BEDTIME 08/12/24 Clopidogrel Bisulfate [Plavix] 75 mg PO DAILY 08/12/24 Cyanocobalamin [Vitamin B-12*] 1 tab PO DAILY 08/12/24 Ferrous Sulfate 1 tab PO DAILY 08/12/24 Furosemide [Lasix] 40 mg PO DAILY 08/12/24 Metoprolol Tartrate 50 mg PO BID 08/12/24 Pantoprazole [Protonix Tab*] 1 tab PO AC 08/12/24 Tamsulosin HCl 1 tab PO DAILY 08/12/24 Valsartan 1 tab PO DAILY 08/12/24 - Past Medical/Surgical History Diabetic: No -: HTN -: Afib -: colon cancer -: cardiac catherization -: colon resection -: CABG x5v - Family History Father Family History: Reviewed- Non-Contributory - Social History Smoking Status: Former smoker Alcohol use: No CD- Drugs: No Review of Systems 10-point ROS is otherwise unremarkable Physical Examination - Vital Signs Temperature: 98 F Blood Pressure: 130/80 Pulse: 80 Respirations: 18 Pulse Ox (%): 95 - Physical Exam General: Alert, In no apparent distress, Oriented x3 HEENT: Atraumatic, PERRLA, Mucous membr. moist/pink, EOMI, Sclerae nonicteric Neck: Supple, 2+ carotid pulse no bruit, No LAD, Without JVD or thyroid abnormality Respiratory: Clear to auscultation bilaterally, Normal air movement Cardiovascular: Regular rate/rhythm, Normal S1 S2, No murmurs Gastrointestinal: Normal bowel sounds, Soft and benign, Non-distended, No rebound, No guarding, Tenderness Musculoskeletal: No clubbing, No swelling, No tenderness Integumentary: Other (Midline sternal incision) Neurological: Normal gait, Normal speech, Normal strength at 5/5 x4 extr, Normal tone, Normal affect Lymphatics: No axilla or inguinal lymphadenopathy - Studies Laboratory Data (last 24 hrs) 08/11/24 08/11/24 08/11/24 13:35 13:35 13:35 WBC 8.00 Hgb 12.7 L Hct 36.7 L Plt Count 304 PT 13.5 H INR 1.19 Sodium 124 L Potassium 3.9 BUN 24 H Creatinine 1.69 H Glucose 127 H Magnesium 2.0 Total Bilirubin 0.8 AST 13 L ALT 23 Alkaline Phosphatase 106 Lipase 59 Assessment & Plan - Problems (Diagnosis) (1) Intractable nausea and vomiting Current Visit: Yes Status: Acute (2) Hyponatremia Current Visit: Yes Status: Acute (3) BRISA (acute kidney injury) Current Visit: Yes Status: Acute (4) Infrarenal abdominal aortic aneurysm (AAA) without rupture Current Visit: Yes Status: Acute (5) Atrial fibrillation Current Visit: No Status: Acute (6) CAD (coronary artery disease) Current Visit: No Status: Acute - Plan 1. Intractable nausea and vomiting; continue with IV fluids and anti emetics. 2. History of coronary artery disease status post CABG with heart failure with preserved ejection fraction; continue with anti-platelet therapy and statin therapy and continue with diuretics. Cardiology consulted and repeat echocardiogram pending 3. acute kidney injury; continue with gentle hydration and monitor renal function. Consult Nephrology 4. history of atrial fibrillation; continue with medication for rate control along with anticoagulation 5. infrarenal aortic aneurysm; is 5cm in diameter. Patient will need to follow up for surgical evaluation. 6. Gi DVT prophylaxis Discharge Plan: Home Plan to discharge in: Greater than 2 days - Advance Directives Does patient have a Living Will: No Does patient have a Durable POA for Healthcare: No - Code Status/Comfort Care Code Status Assessed: Yes Code Status: Full Code Critical Care: No Time Spent Managing PTS Care (In Minutes): 45
[2024-08-11] MEDS ORDERED: Levofloxacin500mg IV 500 MG/100 ML BAG IV ONE (19:53)
[2024-08-11] MEDS ORDERED: CEFTRIAXONE 1000 MG/VIAL ONE (19:53)
[2024-08-11] MEDS ORDERED: NA CHLORIDE 0.9% 50 ML ONE (19:53)
[2024-08-11] MEDS: NA CHLORIDE 0.9% 1,000 ML IV SCH (20:00)
[2024-08-11] MEDS ORDERED: ATORVASTATIN 40 MG TAB ONE (21:23)
[2024-08-11] MEDS: ATORVASTATIN 80 MG TAB PO SCH (21:32)
[2024-08-11 21:58] VITALS: BMI 25.5
[2024-08-12 04:51] LABS: Absolute Eosinophils 0.1 K/uL (0-0.5); Absolute Lymphocytes (CBC) 1.7 K/uL (0.7-4.9); Absolute Monocytes 0.8 K/uL (0.1-1.3); Absolute Neutrophil 6.1 K/uL (1.8-8.0); Basophils % 0.2 % (0-1.3); Eosinophils % 1.7 % (0-4.4); Hematocrit 33.7 % (39.6-49.0); Hemoglobin 11.4 g/dL (13.6-17.9); Lymphocytes % 19.7 % (15.3-44.8); MCH 29.4 pg (27.0-35.0); MCHC 33.8 g/dL (32.0-36.0); MCV 87.1 fL (80-100); Monocytes % 9.4 % (3.3-12.3); Platelets 252 thou/uL (152-406); RBC Red Blood Cell Count 3.87 M/uL (4.33-5.43); Red Cell Distribution Width 16.6 % (12.1-15.2)
[2024-08-12 05:11] LABS: Albumin 3.2 g/dL (3.4-5.0); Albumin/Globulin Ratio 0.8 (1.1-1.8); Anion Gap 11.9 mEq/L (5.0-15.0); Bilirubin Total 0.5 mg/dL (0.2-1.0); Potassium 3.9 mEq/L (3.5-5.1); Protein, Total 7.2 g/dL (6.4-8.2); Troponin High Sensitivity 17.9 pg/mL (<58.9)
[2024-08-12] MEDS: METOPROLOL TAR 25 MG TAB PO SCH (05:30)
[2024-08-12] MEDS: ASPIRIN EC 81 MG TAB PO SCH (09:01)
[2024-08-12] MEDS: FUROSEMIDE 20 MG/ 2ML VIAL IV SCH (09:02)
--- NOTE | 2024-08-12 10:26 | P.PN ---
Date of Service: 08/12/24 Subjective Patient continues to feel better. Respiratory status is stable and renal function is stable as well. Nephrology consulted and Cardiology consulted. Echocardiogram repeat pending. Physical Examination - Vital Signs reviewed - Physical Exam General: Alert, In no apparent distress, Oriented x3 Respiratory: Clear to auscultation bilaterally, Normal air movement Cardiovascular: Regular rate/rhythm, Normal S1 S2, No murmurs Gastrointestinal: Normal bowel sounds, Soft and benign, Non-distended, No rebound, No guarding, Tenderness Musculoskeletal: No clubbing, No swelling, No tenderness Integumentary: Other (Midline sternal incision) Neurological: no focal deficits Assessment & Plan - Problems (Diagnosis) (1) Intractable nausea and vomiting Current Visit: Yes Status: Acute (2) Hyponatremia Current Visit: Yes Status: Acute (3) BRISA (acute kidney injury) Current Visit: Yes Status: Acute (4) Infrarenal abdominal aortic aneurysm (AAA) without rupture Current Visit: Yes Status: Acute (5) Atrial fibrillation Current Visit: No Status: Acute (6) CAD (coronary artery disease) Current Visit: No Status: Acute - Plan 1. Intractable nausea and vomiting; continue with IV fluids and anti emetics. 2. History of coronary artery disease status post CABG with heart failure with preserved ejection fraction; continue with anti-platelet therapy and statin therapy and continue with diuretics. Cardiology consulted and repeat echocardiogram pending 3. acute kidney injury; continue with gentle hydration and monitor renal function. Consult Nephrology 4. history of atrial fibrillation; continue with medication for rate control along with anticoagulation 5. infrarenal aortic aneurysm; is 5cm in diameter. Patient will need to follow up for surgical evaluation. 6. Gi DVT prophylaxis Discharge Plan: Home Plan to discharge in: Greater than 2 days - Advance Directives Does patient have a Living Will: No Does patient have a Durable POA for Healthcare: No - Code Status/Comfort Care Code Status Assessed: Yes Code Status: Full Code Critical Care: No Time Spent Managing PTS Care (In Minutes): 45
--- NOTE | 2024-08-12 11:54 | EKG ---
Test Date: 2024-08-11 Test Time: 14:07:38 Public Works Inspector: JOSE CRUZ MEASUREMENT RESULTS: Intervals: Rate: 80 TN: 164 QRSD: 130 QT: 398 QTc: 459 [place]: P: 78 TN: 164 QRS: 57 T: 221 INTERPRETIVE STATEMENTS: Normal sinus rhythm Nonspecific intraventricular block T wave abnormality, consider inferolateral ischemia Abnormal ECG Compared to ECG 06/13/2024 17:30:39 T-wave abnormality now present Possible ischemia now present Atrial fibrillation no longer present Electronically Signed On 08-12-24 11:52:52 CDT by Avel Jenkins
--- NOTE | 2024-08-12 12:20 | P.CNS ---
Date of Consult: 08/12/24 Chief Complaint: INTRACTABLE NAUSEA AND VOMITING History of Present Illness: Patient with PMH of CAD s/p CABG, left atrial appendage ligation, presented with weakness, fatigue, SOB and WANG, denies chest pain, no palpitations, no syncope. Allergies No Known Allergies Allergy (Unverified 06/13/24 20:51) Home medications list reviewed: Yes Home Medications: Aspirin [Aspirin EC 81 MG] 1 tab PO DAILY 08/12/24 Atorvastatin Calcium 40 mg PO BEDTIME 08/12/24 Clopidogrel Bisulfate [Plavix] 75 mg PO DAILY 08/12/24 Cyanocobalamin [Vitamin B-12*] 1 tab PO DAILY 08/12/24 Ferrous Sulfate 1 tab PO DAILY 08/12/24 Furosemide [Lasix] 40 mg PO DAILY 08/12/24 Metoprolol Tartrate 50 mg PO BID 08/12/24 Pantoprazole [Protonix Tab*] 1 tab PO AC 08/12/24 Tamsulosin HCl 1 tab PO DAILY 08/12/24 Valsartan 1 tab PO DAILY 08/12/24 - Past Medical/Surgical History Diabetic: No -: HTN -: Afib -: colon cancer -: cardiac catherization -: colon resection -: CABG x5v - Family History Father Family History: Reviewed- Non-Contributory - Social History Alcohol use: No CD- Drugs: No Place of Residence: Home Review of Systems 10-point ROS is otherwise unremarkable Physical Examination Temp Pulse Resp BP Pulse Ox 98 F 80 18 130/80 95 08/12/24 10:24 08/12/24 10:24 08/12/24 10:24 08/12/24 10:24 08/12/24 10:24 General: Alert, In no apparent distress HEENT: Atraumatic, PERRLA, Mucous membr. moist/pink, EOMI, Sclerae nonicteric Neck: Supple, 2+ carotid pulse no bruit, No LAD, Without JVD or thyroid abnormality Respiratory: Clear to auscultation bilaterally, Normal air movement Cardiovascular: Regular rate/rhythm, Normal S1 S2 Gastrointestinal: Normal bowel sounds, No tenderness Musculoskeletal: No tenderness Integumentary: No rashes Neurological: Normal gait, Normal speech, Normal tone, Normal affect Lymphatics: No axilla or inguinal lymphadenopathy Laboratory Data (last 24 hrs) 04/08/11/24 08/11/24 13:35 13:35 13:35 WBC 8.00 Hgb 12.7 L Hct 36.7 L Plt Count 304 PT 13.5 H INR 1.19 Sodium 124 L Potassium 3.9 BUN 24 H Creatinine 1.69 H Glucose 127 H Magnesium 2.0 Total Bilirubin 0.8 AST 13 L ALT 23 Alkaline Phosphatase 106 Lipase 59 - Problems (1) Chronic combined systolic and diastolic heart failure Current Visit: Yes Status: Acute Plan: Patient looks mild volume overloaded, repeated echo shows low normal LV function. continue Lasix 20 mg IV BID may switch to lasix 20 mg daily on discharge continue lopressor 25 mg po BID continue to hold Vlsartan continue to monitor input and output (2) Atrial fibrillation Current Visit: No Status: Acute Plan: currently in sinus rhythm patinet is s/p SHIMON ligation continue ASA 81 mg daily continue lopressor 25 mg po BID (3) CAD (coronary artery disease) Current Visit: No Status: Acute Plan: S/P cabg X 5 (ANDRES-LAD, SVG-D1, SVGD2, SVG-OM and SVG-RPDA no chest pain repeated echo shows low normal EF. continue ASA 81 mg daily continue Plavix 75 mg daily continue lipitor.
--- NOTE | 2024-08-12 12:35 | ECHO ---
HEIGHT: 5 ft 11 in WEIGHT: 183 lb 0 oz DATE OF STUDY: 08/12/[address]: Stacey Barrera MD 2-DIMENSIONAL: YES M.MODE: YES DOPPLER: YES COLOR FLOW: YES TDS: PORTABLE: YES DEFINITY: BUBBLE STUDY: DIAGNOSIS: STATUS POST CABG, CONGESTIVE HEART FAILURE CARDIAC HISTORY: CATHERIZATION: YES SURGERY: YES PROSTHETIC VALVE: NO PACEMAKER: NO MEASUREMENTS (cm) DIASTOLIC (NORMALS) SYSTOLIC (NORMALS) IVSd 1.2 (0.6-1.2) LA Diam 3.6 (1.9-4.0) LVEF 45-50% LVIDd 3.9 (3.5-5.7) LVIDs 3.1 (2.0-3.5) %FS 22% LVPWd 1.3 (0.6-1.2) Ao Diam 3.1 (2.0-3.7) 2 DIMENSIONAL ASSESSMENT: RIGHT ATRIUM: NORMAL LEFT ATRIUM: MODERATELY DILATED RIGHT VENTRICLE: NORMAL LEFT VENTRICLE: MILD LEFT VENTRICULAR HYPERTROPHY TRICUSPID VALVE: TRACE TRICUSPID REGURGITATION MITRAL VALVE: MILD MITRAL REGURGITATION PULMONIC VALVE: NORMAL AORTIC VALVE: NORMAL PERICARDIAL EFFUSION: NONE AORTIC ROOT: NORMAL LEFT VENTRICULAR WALL MOTION: PARADOXICAL SEPTAL MOTION POST SURGICAL DOPPLER/COLOR FLOW: DIASTOLIC DYSFUNCTION COMMENTS: 1. LOW NORMAL LEFT VENTRICULAR SYSTOLIC FUNCTION, EJECTION FRACTION 45-50%, WALL MOTION ABOVE 2. DIASTOLIC DYSFUNCTION 3. MILD MITRAL REGURGITATION TECHNOLOGIST: SERGEI ZAVALA
--- NOTE | 2024-08-12 17:10 | CON ---
Date of Consultation: 08/12/2024 Consultation Physician: Dr. Barrera. Reason For Consultation: Elevated BUN and creatinine, fluid management. History Of Present Illness: This is a pleasant 73-year-old gentleman with significant past medical h istory of CAD, recent CABG, complicated with congestive heart failure, hypertension, hyperlipidemia. The patient was in his regular state of health apparently, recently admitted with chest pain, shortn ess of breath, found to have multivessel disease. The patient was transferred to [place], where h e got CABG and bypass. The patient tolerated very well and discharged. The patient when he came [facility] for the last few days, the patient started having some shortness of breath and orthopnea. For that reason, he reported to the hospital. When he arrived to the hospital, the patient found to hav e elevated BUN and creatinine. For that reason, we have been consulted. Reviewing the record for th e patient back in June 2024, creatinine 1.3 with GFR of 55. The patient as I mentioned had recent C ABG and cardiac cath. Also the patient being diuresed and patient was diagnosed with advanced conges tive heart failure. Echocardiogram back in June showed ejection fraction of 40%, global hypokinesia with diastolic dysfunction. Past Medical History: Includes, 1. CAD status post CABG in June 2024. 2. Hypertension. 3. Hyperlipidemia. Home Medications: Includes aspirin, atorvastatin, Plavix, Lasix, metoprolol, pantoprazole, Flomax, a nd valsartan. Allergies: NO KNOWN DRUG ALLERGY. Past Surgical History: Include, 1. CABG. 2. Colon resection. 3. Cardiac cath. Family History: Positive for hypertension. Social History: Ex-smoker. Denied alcohol. Denied drugs abuse. Review of Systems: Head and Neck: No red eye. No ear pain. GI: No nausea, no vomiting. : No polyuria, no dysuria, no hematuria. MANAGER MENTAL HEALTH: Not applicable. Respiratory: Has shortness of breath. Cardiovascular: Has orthopnea. Endocrine: No polydipsia. Skin: No rash. Physical Examination: Vital Signs: When I saw the patient, the patient sitting in the bed, blood pressure 130/80, pulse of 80. Chest: Crackles, more prominent on the right side. Heart: S1, S2. Systolic murmur. Abdomen: Soft, nontender. Extremities: Trace edema. Neurologic: No focality. Laboratory Data: Back in June 2024, creatinine 1.2, GFR of 60. Upon admission to the hospital, sod ium 124, potassium 3.9, bicarb 25, BUN 24, creatinine 1.6, calcium 9, magnesium of 2. Today lab data ; sodium 129, potassium 3.9, bicarb 24, BUN 23, creatinine 1.5, GFR of 45, calcium 8.6. BNP 1200. U rinalysis, urine osmolality 315, random sodium of 18. Current Medications: The patient on include Flomax, Plavix, aspirin, atorvastatin, Lasix 20 b.i.d., Zofran, and pantoprazole. Assessment And Plan: 1. Acute kidney injury, mostly secondary to cardiorenal secondary to CHF exacerbation, superimposed w ith contrast-induced nephropathy. The patient on the over-volume side. I am going to continue diure sing the patient. We will follow up the patient closely. We will hold any BIANCA inhibitor or ARB for the time being and we will send for workup. 2. Hypertension. With the presence of acute kidney injury, hold ARB. With the presence of congestiv e heart failure with exacerbation, we will optimize diuresis. 3. Hyponatremia, dilutional secondary to congestive heart failure, improving on the diuresis, appropr iate rise on the sodium. I am going to send for basic workup including cortisol and TSH and we will follow up. 4. Coronary artery disease with congestive heart failure with exacerbation as above. We will optimiz e the fluid status for the patient. Thank you Dr. Barrera for allowing us to participate in the care of your patient. CYRUS/DELMIS Voice ID: [id number] Report ID: [id number]
[2024-08-12] MEDS: METOPROLOL TAR 50 MG TAB PO SCH (20:31)
[2024-08-12] MEDS: ATORVASTATIN 40 MG TAB PO SCH (20:31)
[2024-08-13 05:06] LABS: Albumin 3.1 g/dL (3.4-5.0); Anion Gap 11.1 mEq/L (5.0-15.0); Phosphorus 3.3 mg/dL (2.5-4.9); Potassium 4.1 mEq/L (3.5-5.1); Uric Acid 7.7 mg/dL (3.5-7.2)
[2024-08-13 05:11] LABS: Thyroid Stimulating Hormone 4.04 uIU/mL (0.358-3.740)
[2024-08-13] MEDS: TAMSULOSIN 0.4 MG SR CAP PO SCH (08:56)
[2024-08-13] MEDS: ASPIRIN EC 81 MG TAB PO SCH (08:56)
[2024-08-13] MEDS: FERROUS SULFATE 325 MG TAB PO SCH (08:56)
[2024-08-13] MEDS: CLOPIDOGREL 75 MG TABLET PO SCH (08:56)
[2024-08-13] MEDS: PANTOPRAZOLE 40MG TABLET PO SCH (08:56)
[2024-08-13] MEDS: CYANOCOBALAMIN 1,000 MCG TAB PO SCH (08:56)
--- NOTE | 2024-08-13 15:05 | P.PN ---
Subjective Date of Service: 08/13/24 Chief Complaint: INTRACTABLE NAUSEA AND VOMITING Subjective: No new changes, No C/O voiced, Tolerating diet, Ambulating, Improving Review of Systems 10-point ROS is otherwise unremarkable Physical Examination - Vital Signs Temperature: 98 F Blood Pressure: 119/79 Pulse: 85 Respirations: 17 Pulse Ox (%): 96 - Physical Exam General: Alert, In no apparent distress HEENT: Atraumatic, PERRLA, EOMI Neck: Supple, JVD not distended Respiratory: Clear to auscultation bilaterally, Normal air movement Cardiovascular: Regular rate/rhythm, Normal S1 S2 Gastrointestinal: Normal bowel sounds, No tenderness Musculoskeletal: No tenderness Integumentary: No rashes Neurological: Normal speech, Normal tone, Normal affect Lymphatics: No axilla or inguinal lymphadenopathy - Studies Medications List Reviewed: Yes Assessment And Plan - Current Problems (Diagnosis) (1) Chronic combined systolic and diastolic heart failure Current Visit: Yes Status: Acute Plan: Patient looks mild volume overloaded, repeated echo shows low normal LV functio n. continue Lasix 20 mg IV BID may switch to lasix 20 mg daily on discharge continue lopressor 50 mg po BID continue to hold Vlsartan outpatient follow up with Cardiology and Nephrology continue to monitor input and output (2) Atrial fibrillation Current Visit: No Status: Acute Plan: currently in sinus rhythm patinet is s/p SHIMON ligation continue ASA 81 mg daily continue lopressor 50 mg po BID (3) CAD (coronary artery disease) Current Visit: No Status: Acute Plan: S/P cabg X 5 (ANDRES-LAD, SVG-D1, SVGD2, SVG-OM and SVG-RPDA no chest pain repeated echo shows low normal EF. continue ASA 81 mg daily continue Plavix 75 mg daily continue lipitor.
--- NOTE | 2024-08-13 21:30 | PN ---
Subjective: No overnight event. His creatinine level is stable at 1.5. Sodium improved to 129. Objective: Vital Signs: Temperature 98, pulse rate 67, blood pressure 116/71. HEENT: No icterus. General: Chronically ill. Neck: Supple. No elevated JVD. Heart: Regular rate and rhythm. Normal S1, S2. Chest: Clear to auscultation bilaterally. No rales or wheezes. Abdomen: Soft, nontender. Extremities: No edema. Laboratory Data: Sodium 129, potassium 4.1, BUN 20, creatinine 1.5. Assessment And Plan: This is a 73-year-old man who has medical history of chronic kidney disease, ba seline creatinine 1.3. Heart failure with reduced ejection fraction, status post recent coronary art barbara bypass grafting, who was admitted for congestive heart failure exacerbation, has acute kidney inj ury and hypervolemic hyponatremia. 1. Acute kidney injury on chronic kidney disease. Baseline creatinine 1.3, may be due to cardiorenal syndrome. Continue diuretic. Renal dose medication. 2. Hypervolemic hyponatremia. Sodium improved. Continue Lasix. 3. Heart failure with reduced ejection fraction. Currently, patient looks euvolemic. Continue Lasix and metoprolol. 4. Coronary artery disease, status post coronary artery bypass grafting. Continue aspirin, Plavix, a nd Lipitor. Low-salt diet. Thanks for allowing me to participate in the patient's care. Total time spent 55 minutes including d ocumentation, reviewing labs, and placing orders. KALE/DELMIS Voice ID: [id number] Report ID: [id number]
[2024-08-14 05:49] LABS: Albumin 3.2 g/dL (3.4-5.0); Anion Gap 12.9 mEq/L (5.0-15.0); Phosphorus 3.6 mg/dL (2.5-4.9); Potassium 3.9 mEq/L (3.5-5.1)
[2024-08-14 09:24] VITALS: O2SAT 98
[2024-08-14] MEDS: AMIODARONE HCL 200 MG TAB PO ONE (11:54)
[2024-08-14 12:21] VITALS: BP 130/73; TEMP 98
== END 2024-08-14 14:36 | disposition home or self-care (01) | DRG 682 ==
LOC: ER 11:32 → ERHOLD 19:24 → 4TH 22:31
PROVIDERS: ADMIT Hospitalist; ATTEND Hospitalist
DX: N17.9 Acute kidney failure, unspecified (principal); I50.33 Acute on chronic diastolic (congestive) heart failure; I13.0 Hypertensive heart and chronic kidney disease with heart failure and stage 1 through stage 4 chronic kidney disease, or unspecified chronic kidney disease; E87.1 Hypo-osmolality and hyponatremia; N18.9 Chronic kidney disease, unspecified; E78.5 Hyperlipidemia, unspecified; I48.91 Unspecified atrial fibrillation; I71.43 Infrarenal abdominal aortic aneurysm, without rupture; I25.10 Atherosclerotic heart disease of native coronary artery without angina pectoris; Z95.1 Presence of aortocoronary bypass graft; Z11.52 Encounter for screening for COVID-19; Z90.49 Acquired absence of other specified parts of digestive tract; Z79.82 Long term (current) use of aspirin; Z79.02 Long term (current) use of antithrombotics/antiplatelets; Z79.899 Other long term (current) drug therapy; Z87.891 Personal history of nicotine dependence; Z85.038 Personal history of other malignant neoplasm of large intestine
CPT/HCPCS: 36415; 71045; 71250; 74176; 80048; 80053; 80069; 80076; 82533; 82550; 82947; 83605; 83690; 83735; 83880; 83930; 83935; 83970; 84300; 84439; 84443; 84484; 84550; 85025; 85610; 87040; 87428; 93005; 93306; 96361; 96365; 96375; 97116; 97161; 97530; 99285; J0696; J1938; J2405; J7030